=== PATIENT | female | born 1955 | race Caucasian/White ===

== ENCOUNTER → 2017-03-14 | Outpatient (CLI) | payer OTHER ==
[~2017-03-14] MED LIST: ANTIVERT25 MG PO; CARDIZEM CD180 MG PO; COUMADIN 5 MG TA5 M1 PO; DILTIAZEM 24HR240 M1 PO; ENOXAPARIN80 MG/0.1 SUBQ; HYDROCODON-ACE1 EAC5; LASIX 40 MG TAB40 M2 PO; NEURONTIN 300300 M1 PO; NOHOMEMEDICATIONS; OXYCONTIN10 M1; PERCOCET 5-3251 EACH PO; PRAVACHOL40 MG PO; ROBAXIN 750 MG750 M1; ZOFRAN ODT4 MG PO
== END ==
LOC: RAD 03:49
DX: Z12.31 Encounter for screening mammogram for malignant neoplasm of breast (principal)